=== PATIENT | female | born 1980 | race Caucasian/White ===

== ENCOUNTER 2019-03-02 20:21 | Emergency (ER) | payer OTHER ==
[~2019-03-02] VITALS: Ht 152.4 cm; Wt 63.0 kg
[~2019-03-02 20:21] MED LIST: CIPR500T87 PO; HYDR-3237 PO; HYDR-3240 PO; MESA1.2T PO; MESA10003 PR; METR500T PO; ONDA4TAB10 PO; OXYC1TAB7 PO; PRED10TA PO; PRED20TA PO; TRAM50TA2 PO
--- NOTE | 2019-03-02 21:06 | NUR ---
NO ANSWER AT [id number]
[2019-03-02 21:12] LABS: CULTURE INDICATED? YES; MICROSCOPIC INDICATED
[2019-03-02 21:24] LABS: BASOPHILS # (AUTO) 0.08 x10^3/uL (0-0.1); BASOPHILS % (AUTO) 1 % (0-1); EOSINOPHILS # (AUTO) 0.56 x10^3/uL (0-0.4); EOSINOPHILS % (AUTO) 4 % (1-7); LYMPHOCYTES # (AUTO) 2.96 x10^3/uL (1-3.4); LYMPHOCYTES % (AUTO) 21 % (22-44); MD NO; MEAN CORPUSCULAR HEMOGLOBIN 26.3 pg (27.0-34.8); MEAN CORPUSCULAR HGB CONC 31.8 g/dL (32.4-35.8); MEAN CORPUSCULAR VOLUME 82.6 fL (80-100); MEAN PLATELET VOLUME 8.1 fL (7.4-10.4); MONOCYTES # (AUTO) 0.85 x10^3/uL (0.2-0.8); MONOCYTES % (AUTO) 6 % (2-9); NEUTROPHILS % (AUTO) 68 % (42-75); PLATELET COUNT 424 x10^3/uL (130-400); RED CELL DISTRIBUTION WIDTH 16.4 % (9.6-15.2)
[2019-03-02 21:37] LABS: ALBUMIN 3.7 g/dL (3.4-5.0); ANION GAP 8 mmol/L (5-15); CALCIUM 8.8 mg/dL (8.5-10.1); CHLORIDE 105 mmol/L (98-107); CREATININE 0.86 mg/dL (0.55-1.02)
[2019-03-02] MEDS ORDERED: ONDANSETRON 2MG/ML, 2ML ONE (22:00)
[2019-03-02] MEDS ORDERED: ONDANSETRON 2MG/ML, 2ML IVPush ONE (22:00)
[2019-03-02] MEDS ORDERED: SODIUM CHLORIDE FLUSH 10ML SYR IVF ONE (22:00)
[2019-03-02] MEDS ORDERED: CEFTRIAXONE PMX 1GM/50ML 50 ML IV ONE (22:00)
[2019-03-02] MEDS ORDERED: MORPHINE SULFATE 4 MG/ML, 1ML IVPush PRN (22:00)
[2019-03-02] MEDS ORDERED: KETOROLAC 30 MG/1 ML IVPush ONE (22:00)
[2019-03-02] MEDS ORDERED: KETOROLAC 30 MG/1 ML ONE (22:01)
[2019-03-02] MEDS ORDERED: CEFTRIAXONE PMX 1GM/50ML 50 ML ONE (22:01)
[2019-03-02] MEDS ORDERED: MORPHINE SULFATE 4 MG/ML, 1ML ONE (22:01)
--- NOTE | 2019-03-02 22:22 | NUR ---
PIV IN PLACE. PT MEDICATED. VSS. SPOUSE AT BEDSIDE. PT SAYS PAIN HAS IMPROVED WITH MEDICATION. WAITING FOR CT RESULTS. CALL LIGHT IN REACH
[2019-03-02 22:30] VITALS: BP 106/76
--- NOTE | 2019-03-02 23:04 | NUR ---
Patient given discharge instructions and they have confirmed that they understand the instructions. Patient ambulatory with steady gait.
== END 2019-03-02 23:08 | disposition home or self-care (01) ==
LOC: ED 23:03
DX: N30.01 Acute cystitis with hematuria (principal); N12 Tubulo-interstitial nephritis, not specified as acute or chronic; N83.202 Unspecified ovarian cyst, left side; Z98.890 Other specified postprocedural states
CPT/HCPCS: 36415; 74176; 80048; 81001; 82040; 84703; 85025; 87077; 87086; 87186; 96365; 96375; 99284; J0696; J1885; J2270; J2405; 87184

== ENCOUNTER → 2019-11-22 | Outpatient (CLI) | payer OTHER ==
[~2019-11-22] MED LIST changes: +ACID1TAB7 PO; +CEFD300C37 PO; +NITR100C PO; +OMEP-110 PO; +ONDA4TAB13 SL
== END | disposition home or self-care (01) ==
LOC: CFH 16:22
PROVIDERS: ATTEND Family Medicine
DX: R31.9 Hematuria, unspecified (principal)
CPT/HCPCS: 74018

== ENCOUNTER 2020-03-29 07:40 | Emergency (ER) | payer OTHER ==
[~2020-03-29] VITALS: Ht 152.4 cm; Wt 64.7 kg
[2020-03-29 09:10] LABS: BASOPHILS # (AUTO) 0.02 x10^3/uL (0-0.1); BASOPHILS % (AUTO) 0 % (0-1); EOSINOPHILS # (AUTO) 0.19 x10^3/uL (0-0.4); EOSINOPHILS % (AUTO) 2 % (1-7); LYMPHOCYTES # (AUTO) 1.46 x10^3/uL (1-3.4); LYMPHOCYTES % (AUTO) 15 % (22-44); MD NO; MEAN CORPUSCULAR HEMOGLOBIN 28.2 pg (27.0-34.8); MEAN CORPUSCULAR HGB CONC 32.9 g/dL (32.4-35.8); MEAN CORPUSCULAR VOLUME 85.6 fL (80-100); MEAN PLATELET VOLUME 7.9 fL (7.4-10.4); MONOCYTES # (AUTO) 0.47 x10^3/uL (0.2-0.8); MONOCYTES % (AUTO) 5 % (2-9); NEUTROPHILS # (AUTO) 7.83 x10^3/uL (1.8-6.8); NEUTROPHILS % (AUTO) 79 % (42-75); PLATELET COUNT 383 x10^3/uL (130-400); RED BLOOD COUNT 4.77 x10^6/uL (3.82-5.3); RED CELL DISTRIBUTION WIDTH 14.2 % (9.6-15.2)
--- NOTE | 2020-03-29 09:17 | NUR ---
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
[2020-03-29 09:55] LABS: ALBUMIN 3.9 g/dL (3.4-5.0); CALCIUM 8.7 mg/dL (8.5-10.1)
[2020-03-29 10:10] LABS: ALKALINE PHOSPHATASE 107 U/L (45-117); ANION GAP 8 mmol/L (5-15); BILIRUBIN,TOTAL 0.3 mg/dL (0.2-1.0); CHLORIDE 108 mmol/L (98-107); CREATININE 0.68 mg/dL (0.55-1.02); TOTAL PROTEIN 8.8 g/dL (6.4-8.2)
[2020-03-29] MEDS ORDERED: ONDANSETRON ODT 4 MG ONE (10:24)
[2020-03-29] MEDS ORDERED: ONDANSETRON ODT 4 MG PO ONE (10:30)
[2020-03-29 10:32] LABS: ALANINE AMINOTRANSFERASE 37 U/L (12-78); TROPONIN I < 0.015 ng/mL (0.000-0.045)
--- NOTE | 2020-03-29 10:38 | NUR ---
SUDDEN-ONSET EPIGASTRIC PAIN, NAUSEA AND LEFT ARM PAIN WHILE AT WORK THIS AM. US AT BEDSIDE.
[2020-03-29] MEDS ORDERED: HYDROmorphone 1 MG/ML, 1ML INJ ONE ×2 (10:41→11:35)
[2020-03-29] MEDS ORDERED: HYDROmorphone 1 MG/ML, 1ML INJ IM ONE (11:00)
[2020-03-29] MEDS ORDERED: SODIUM CHLORIDE 0.9% 1,000ML IVBOLUS ONE (11:30)
[2020-03-29] MEDS ORDERED: ONDANSETRON 2MG/ML, 2ML IVPush ONE (11:30)
[2020-03-29] MEDS ORDERED: KETOROLAC 30 MG/1 ML IVPush ONE (11:30)
[2020-03-29] MEDS ORDERED: FAMOTIDINE 20 MG/2 ML IV ONE (11:30)
[2020-03-29] MEDS ORDERED: PROMETHAZINE 25 MG/ML, 1ML IM ONE (11:30)
[2020-03-29] MEDS ORDERED: SODIUM CHLORIDE FLUSH 10ML SYR IVF ONE (11:30)
[2020-03-29] MEDS ORDERED: PROMETHAZINE 25 MG/ML, 1ML ONE (11:34)
[2020-03-29] MEDS ORDERED: ONDANSETRON 2MG/ML, 2ML ONE (12:00)
[2020-03-29] MEDS ORDERED: KETOROLAC 30 MG/1 ML ONE (12:00)
[2020-03-29] MEDS ORDERED: FAMOTIDINE 20 MG/2 ML ONE (12:04)
--- NOTE | 2020-03-29 12:08 | NUR ---
ASSIST RN: PT TO IMAGING VIA [employer].
--- NOTE | 2020-03-29 12:29 | NUR ---
ASSIST RN: PT MORE CALM & COMFORTABLE AFTER IV MEDS. ASSISTED PT TO BR VIA WC. PT STATES SHE FEELS A LITTLE DIZZY WHEN SHE GETS UP. INSTRUCTED ON CLEAN CATCH URINE SAMPLE.
[2020-03-29 12:58] LABS: MICROSCOPIC AUTO
[2020-03-29 14:09] VITALS: BP 124/54
== END 2020-03-29 14:10 | disposition home or self-care (01) ==
LOC: ED 11:02
DX: N30.00 Acute cystitis without hematuria (principal); R11.2 Nausea with vomiting, unspecified; R10.84 Generalized abdominal pain; R94.31 Abnormal electrocardiogram [ECG] [EKG]; R00.0 Tachycardia, unspecified; R07.9 Chest pain, unspecified; Z90.49 Acquired absence of other specified parts of digestive tract
CPT/HCPCS: 36415; 71045; 74176; 76700; 80053; 81001; 83880; 84484; 84703; 85025; 87086; 93005; 96361; 96372; 96374; 96375; 99285; J1170; J1885; J2405; J3490; J7030; Q0162

== ENCOUNTER → 2021-04-30 | Outpatient (CLI) | payer OTHER ==
[~2021-04-30] MED LIST changes: +HYDR-2214 PO; -HYDR-3240 PO; -MESA10003 PR; +[UNRECOGNIZED DRUG - CODE] PR
[2021-04-30 08:02] LABS: BASOPHILS % (AUTO) 1 % (0-1); EOSINOPHILS % (AUTO) 5 % (1-7); LYMPHOCYTES % (AUTO) 22 % (22-44); MEAN CORPUSCULAR HEMOGLOBIN 28.9 pg (27.0-34.8); MEAN CORPUSCULAR HGB CONC 34.3 g/dL (32.4-35.8); MEAN PLATELET VOLUME 7.5 fL (7.4-10.4); MONOCYTES % (AUTO) 6 % (2-9); NEUTROPHILS % (AUTO) 65 % (42-75); PLATELET COUNT 395 x10^3/uL (130-400); RED BLOOD COUNT 4.68 x10^6/uL (3.82-5.3); RED CELL DISTRIBUTION WIDTH 13.9 % (9.6-15.2)
[2021-04-30 08:07] LABS: MICROSCOPIC AUTO
[2021-04-30 08:14] LABS: ALANINE AMINOTRANSFERASE 32 U/L (12-78); ALBUMIN 3.3 g/dL (3.4-5.0); ANION GAP 5 mmol/L (5-15); CALCIUM 8.2 mg/dL (8.5-10.1); CHLORIDE 109 mmol/L (98-107); CHOLESTEROL, TOTAL 194 mg/dL (140-239); CREATININE 0.61 mg/dL (0.55-1.02); TRIGLYCERIDES 117 mg/dL (50-200); VLDL CHOLESTEROL 23 mg/dL (0-25)
[2021-04-30 08:24] LABS: ALKALINE PHOSPHATASE 111 U/L (45-117); BILIRUBIN,TOTAL 0.2 mg/dL (0.2-1.0); CHOL/HDL RATIO 5.5; HDL CHOL % 18 % (28-40); HDL CHOLESTEROL (DIRECT) 35 mg/dL (40-60); LDL CHOLESTEROL,CALCULATED 136 mg/dL (54-169); LDL/HDL RATIO 3.9 (0.5-3.0); TOTAL PROTEIN 7.9 g/dL (6.4-8.2)
== END | disposition home or self-care (01) ==
LOC: LAB 07:31
PROVIDERS: ATTEND Family Medicine
DX: Z00.00 Encounter for general adult medical examination without abnormal findings (principal)
CPT/HCPCS: 36415; 80053; 80061; 81001; 82150; 83036; 83690; 84443; 85025